=== PATIENT | female | born 1990 | race Caucasian/White ===

== ENCOUNTER 2020-11-11 04:27 | Inpatient (IN) | payer OTHER ==
--- NOTE | 2020-11-12 08:47 | PR ---
[facility] [address] [place], [place] [address] Signed PP Progress Notes Datetime Report Generated by CPN: 11/12/2020 08:09 SUBJECTIVE: [id number] Pain: Within Normal Limits Nausea/Vomiting: Denies Flatus: Yes Bowel Movement: No Vital Signs: [id number] Vital Signs: Reviewed; Within Normal Limits Cardiovascular: Normal Respiratory: Normal Abdomen/Uterus: Normal Lochia: Normal CVA Tenderness: Normal Extremities: Normal Incision: Not Applicable Progress: Normal Exam Comments: Fundus firm U-2 nontender IMPRESSION/PLAN/PROCEDURES: [id number] Impression: Normal Progression Plan: Discharge Progress Notes: Pt seen and examined. Doing well. Ambulating, voiding, and tolerating full diet. Pain and lochia minimal. well. No other concerns. Desires d/c home. Reviewed d/c instructions in detail. Planning Mirena IUD for pp contraception. F/U 2 wks Signing Physician: Yaneli Helms DO Copies: ~ *Electronically Signed* 11/12/20 0809 YANELI HELMS DO PATIENT NAME: CLARKSAMUEL PROGRESS NOTE DATE OF : 89 PHYSICIAN: YANELI HELMS DO RPT #: [id number] REPORT IS CONFIDENTIAL AND NOT TO BE RELEASED WITHOUT AUTHORIZATION
== END 2020-11-12 10:50 | disposition home or self-care (01) | DRG 807 ==
LOC: FBCO 04:27 → FBC 04:40
PROVIDERS: ADMIT Obstetrics & Gynecology; ATTEND Obstetrics & Gynecology
PROC: 10E0XZZ Delivery of Products of Conception, External Approach (ICD-10-PCS; principal; 2020-11-11)
PROC: 3E0R3BZ Introduction of Anesthetic Agent into Spinal Canal, Percutaneous Approach (ICD-10-PCS; 2020-11-11)
PROC: 00HU33Z Insertion of Infusion Device into Spinal Canal, Percutaneous Approach (ICD-10-PCS; 2020-11-11)
DX: O80 Encounter for full-term uncomplicated delivery (principal); Z37.0 Single live birth; Z3A.39 39 weeks gestation of pregnancy; Z86.16 Personal history of COVID-19; Z79.82 Long term (current) use of aspirin; Z79.899 Other long term (current) drug therapy
CPT/HCPCS: 36415; 85027; A9270; J2001; J2274; J2590; J3010; J7121